=== PATIENT | female | born 1935 | race Caucasian/White ===

== ENCOUNTER 2021-02-05 10:09 | Emergency (ER) | payer MEDICARE, OTHER ==
[2021-02-05 10:37] LABS: BASOPHIL 0.4 % (0-2); EOSINOPHIL 0.2 % (0-7); HCT 39.8 % (37.0-47.0); HGB 13.2 g/dl (12.5-16.0); LYMPHOCYTE 9.9 % (15-48); MCH 31.2 pg (25.0-31.0); MCHC 33.2 g/dL (32.0-36.0); MCV 94.1 fL (78.0-100.0); MONOCYTE 17.1 % (0-12); NEUTROPHIL 72.2 % (41-80); NRBC 0; PLT 140 K/uL (150-400); RBC 4.23 M/uL (4.20-5.40); RDW 13.3 % (11.5-14.0); WBC 5.3 K/uL (4.0-10.5)
[2021-02-05 11:11] LABS: ALBUMIN 3.2 g/dL (3.4-5.0); BILIRUBIN - TOTAL 0.9 mg/dL (0.2-1.0); CREATININE 0.85 mg/dL (0.51-0.95); GLOBULIN (CALCULATION) 3.2 g/dL; POTASSIUM 3.8 mmol/L (3.5-5.1); TOTAL PROTEIN 6.4 g/dL (6.4-8.2)
== END 2021-02-05 12:11 | disposition home or self-care (01) ==
LOC: FER 10:09
PROVIDERS: Internal Medicine
DX: U07.1 COVID-19 (principal); I25.2 Old myocardial infarction; E78.5 Hyperlipidemia, unspecified; I10 Essential (primary) hypertension; M54.9 Dorsalgia, unspecified; Z53.29 Procedure and treatment not carried out because of patient's decision for other reasons; Z95.0 Presence of cardiac pacemaker
CPT/HCPCS: 36415; 71045; 80053; 84145; 85025; 93005; M0243

== ENCOUNTER 2021-02-08 08:15 | Inpatient (IN) | payer MEDICARE, OTHER ==
[~2021-02-08] VITALS: Ht 162.6 cm; Wt 69.1 kg
[2021-02-08 09:38] LABS: BASOPHIL 0.5 % (0-2); EOSINOPHIL 0 % (0-7); HCT 40.4 % (37.0-47.0); HGB 13.3 g/dl (12.5-16.0); LYMPHOCYTE 14.7 % (15-48); MCH 30.4 pg (25.0-31.0); MCHC 32.9 g/dL (32.0-36.0); MCV 92.4 fL (78.0-100.0); MONOCYTE 19.1 % (0-12); NEUTROPHIL 64.4 % (41-80); NRBC 0; PLT 152 K/uL (150-400); RBC 4.37 M/uL (4.20-5.40); RDW 12.9 % (11.5-14.0); WBC 3.9 K/uL (4.0-10.5)
[2021-02-08 10:07] LABS: ALBUMIN 2.8 g/dL (3.4-5.0); BILIRUBIN - TOTAL 0.6 mg/dL (0.2-1.0); BUN/CREAT RATIO (CALC) 31.2 RATIO; C-REACTIVE PROTEIN 6.5 mg/dL (<=0.90); CREATININE 0.64 mg/dL (0.51-0.95); POTASSIUM 3.3 mmol/L (3.5-5.1); TOTAL PROTEIN 6.8 g/dL (6.4-8.2)
[2021-02-08 10:10] LABS: INR 1.24 (0.9-1.2); PROTHROMBIN TIME 14.9 SECONDS (11.8-13.4); PTT 37.5 SECONDS (24.4-34.7)
[2021-02-08 10:21] LABS: IRON % SATURATION 7.8 %SAT (20-50)
[2021-02-08 10:49] LABS: LACTIC ACID 0.9 mmol/L (0.4-1.9)
[2021-02-10 06:39] LABS: BASOPHIL 0.1 % (0-2); EOSINOPHIL 0 % (0-7); HCT 37.1 % (37.0-47.0); HGB 12.7 g/dl (12.5-16.0); LYMPHOCYTE 8.6 % (15-48); MCHC 34.2 g/dL (32.0-36.0); MCV 90.5 fL (78.0-100.0); MONOCYTE 10.3 % (0-12); MPV 10.8 fL (6.0-9.5); NEUTROPHIL 79.1 % (41-80); NRBC 0; PLT 162 K/uL (150-400); RDW 12.8 % (11.5-14.0)
[2021-02-10 06:41] LABS: WBC 7.2 K/uL (4.0-10.5)
[2021-02-10 07:30] LABS: BUN/CREAT RATIO (CALC) 31.7 RATIO; CREATININE 0.63 mg/dL (0.51-0.95); POTASSIUM 3.3 mmol/L (3.5-5.1)
[2021-02-11 06:51] LABS: BASOPHIL 0.4 % (0-2); EOSINOPHIL 0 % (0-7); HCT 37.6 % (37.0-47.0); HGB 12.8 g/dl (12.5-16.0); LYMPHOCYTE 11.6 % (15-48); MPV 10.8 fL (6.0-9.5); NEUTROPHIL 71.1 % (41-80); NRBC 0; PLT 179 K/uL (150-400); RBC 4.13 M/uL (4.20-5.40)
[2021-02-11 06:52] LABS: WBC 6.8 K/uL (4.0-10.5)
[2021-02-11 07:28] LABS: ALBUMIN 2.2 g/dL (3.4-5.0); BILIRUBIN - TOTAL 0.3 mg/dL (0.2-1.0); BUN/CREAT RATIO (CALC) 30.8 RATIO; C-REACTIVE PROTEIN 1.5 mg/dL (<=0.90); CREATININE 0.65 mg/dL (0.51-0.95); GLOBULIN (CALCULATION) 3.2 g/dL; POTASSIUM 3.5 mmol/L (3.5-5.1); TOTAL PROTEIN 5.4 g/dL (6.4-8.2)
[2021-02-11] MEDS ORDERED: ALENDRONATE SOD70 MG PO (13:37)
[2021-02-11] MEDS ORDERED: DILTIAZEM ER360 MG PO (13:38)
[2021-02-11] MEDS ORDERED: LIPITOR40 MG PO (13:38)
[2021-02-11] MEDS ORDERED: NEURONTIN300 MG PO (13:39)
[2021-02-11] MEDS ORDERED: SYNTHROID125 MCG PO (13:39)
[2021-02-11] MEDS ORDERED: ELIQUIS5 MG PO (13:39)
[2021-02-11] MEDS ORDERED: PRINIVIL20 MG PO (13:40)
[2021-02-11] MEDS ORDERED: TOPROL XL 50 MG50 MG PO (13:40)
[2021-02-12 07:00] LABS: BASOPHIL 0.6 % (0-2); EOSINOPHIL 0 % (0-7); HCT 39.5 % (37.0-47.0); HGB 13.1 g/dl (12.5-16.0); LYMPHOCYTE 10.3 % (15-48); MCH 30.5 pg (25.0-31.0); MCHC 33.2 g/dL (32.0-36.0); MCV 92.1 fL (78.0-100.0); MONOCYTE 11.9 % (0-12); MPV 10.6 fL (6.0-9.5); NEUTROPHIL 71.4 % (41-80); NRBC 0; PLT 192 K/uL (150-400); RBC 4.29 M/uL (4.20-5.40); RDW 13.2 % (11.5-14.0); WBC 6.4 K/uL (4.0-10.5)
[2021-02-12 07:21] LABS: BUN/CREAT RATIO (CALC) 25.7 RATIO; CREATININE 0.74 mg/dL (0.51-0.95); POTASSIUM 3.7 mmol/L (3.5-5.1)
[2021-02-12] MEDS ORDERED: MEDROL 4MG DOSEP4 MG PO ×2 (11:24→16:01)
== END 2021-02-12 16:00 | disposition home health service (06) | DRG 177 ==
LOC: FER 08:15 → FTCU 11:46 → FMS 02-12 01:31
PROVIDERS: Emergency Medicine; Internal Medicine; Nurse Practitioner; ADMIT Internal Medicine
PROC: XW033E5 Introduction of Remdesivir Anti-infective into Peripheral Vein, Percutaneous Approach, New Technology Group 5 (ICD-10-PCS; principal; 2021-02-08)
PROC: 8E0ZXY6 Isolation (ICD-10-PCS; 2021-02-08)
DX: U07.1 COVID-19 (principal); J12.82 Pneumonia due to coronavirus disease 2019; J96.01 Acute respiratory failure with hypoxia; I21.A1 Myocardial infarction type 2; J18.9 Pneumonia, unspecified organism; M84.48XA Pathological fracture, other site, initial encounter for fracture; I10 Essential (primary) hypertension; Z66 Do not resuscitate; Z96.652 Presence of left artificial knee joint; E03.9 Hypothyroidism, unspecified; G62.9 Polyneuropathy, unspecified; G89.29 Other chronic pain; Z79.01 Long term (current) use of anticoagulants; Z79.890 Hormone replacement therapy; Z79.899 Other long term (current) drug therapy; Z90.710 Acquired absence of both cervix and uterus; Z90.89 Acquired absence of other organs; Z95.0 Presence of cardiac pacemaker; I25.2 Old myocardial infarction; Z86.73 Personal history of transient ischemic attack (TIA), and cerebral infarction without residual deficits; Z98.41 Cataract extraction status, right eye; Z98.42 Cataract extraction status, left eye
CPT/HCPCS: 36415; 36600; 71250; 80048; 80053; 82550; 82728; 82803; 83540; 83550; 83605; 83615; 83735; 83880; 84145; 84443; 84484; 85025; 85610; 85730; 86140; 87040; 93005; 94010; 94640; 94667; 94668; 97162; 97166; 97530-GP; 97535; C9399; J0456; J0696; J1100; J1650; J7050; J8540; U0002

== ENCOUNTER 2021-02-18 07:27 | Inpatient (IN) | payer MEDICARE, OTHER ==
[~2021-02-18] VITALS: Ht 162.6 cm; Wt 69.9 kg
[~2021-02-18 07:27] MED LIST: ALENDRONATE SOD70 MG PO; DILTIAZEM ER360 MG PO; ELIQUIS5 MG PO; LIPITOR40 MG PO; MEDROL 4MG DOSEP4 MG PO; NEURONTIN300 MG PO; PRINIVIL20 MG PO; SYNTHROID125 MCG PO; TOPROL XL 50 MG50 MG PO
[2021-02-18 08:16] LABS: BASOPHIL 0.2 % (0-2); EOSINOPHIL 0.3 % (0-7); HCT 42.5 % (37.0-47.0); MCHC 32.9 g/dL (32.0-36.0); MONOCYTE 5.8 % (0-12); MPV 10.4 fL (6.0-9.5); NEUTROPHIL 86.7 % (41-80); NRBC 0; PLT 257 K/uL (150-400); RBC 4.52 M/uL (4.20-5.40); RDW 13.6 % (11.5-14.0); WBC 12.5 K/uL (4.0-10.5)
[2021-02-18 08:50] LABS: ALBUMIN 2.5 g/dL (3.4-5.0); BILIRUBIN - TOTAL 0.7 mg/dL (0.2-1.0); C-REACTIVE PROTEIN 1.8 mg/dL (<=0.90); CREATININE 0.75 mg/dL (0.51-0.95); GLOBULIN (CALCULATION) 3.2 g/dL; MAGNESIUM 2.1 mg/dL (1.8-2.4); POTASSIUM 3.7 mmol/L (3.5-5.1); TOTAL PROTEIN 5.7 g/dL (6.4-8.2)
[2021-02-18 14:09] LABS: LACTIC ACID 1.5 mmol/L (0.4-1.9)
[2021-02-18 15:05] LABS: BILIRUBIN NEGATIVE (NEGATIVE); BLOOD NEGATIVE Ery/uL (NEGATIVE); CLARITY CLEAR (CLEAR); COLOR YELLOW (YELLOW); GLUCOSE (U) NORMAL (NORMAL); LEUKOCYTES NEGATIVE Leu/uL (NEGATIVE); NITRITE NEGATIVE (NEGATIVE); PROTEIN NEGATIVE (NEGATIVE); UROBILINOGEN 0.2 mg/dL (0.2-1.0); pH 7.5 (5.0-9.0)
[2021-02-18 18:10] LABS: MAGNESIUM 1.9 mg/dL (1.8-2.4)
[2021-02-19 05:56] LABS: BASOPHIL 0 % (0-2); EOSINOPHIL 0.7 % (0-7); HCT 39.5 % (37.0-47.0); HGB 13.5 g/dl (12.5-16.0); LYMPHOCYTE 8.2 % (15-48); MCHC 34.2 g/dL (32.0-36.0); MCV 90.8 fL (78.0-100.0); MONOCYTE 7.7 % (0-12); MPV 10.8 fL (6.0-9.5); NEUTROPHIL 82.5 % (41-80); NRBC 0; PLT 215 K/uL (150-400); RBC 4.35 M/uL (4.20-5.40); RDW 13.7 % (11.5-14.0); WBC 8.9 K/uL (4.0-10.5)
[2021-02-19 06:15] LABS: BILIRUBIN - TOTAL 0.9 mg/dL (0.2-1.0); BUN/CREAT RATIO (CALC) 24.2 RATIO; CREATININE 0.66 mg/dL (0.51-0.95); GLOBULIN (CALCULATION) 2.8 g/dL; MAGNESIUM 1.9 mg/dL (1.8-2.4); TOTAL PROTEIN 4.8 g/dL (6.4-8.2)
--- NOTE | 2021-02-19 16:35 | NUR ---
02/19 Ms. Rivas lives with her son and [id number]. She has home 02 at 2 L and a rw. [facility] is current and has been notified of admission. Please notify [facility] at [phone] if patient discharges over the weekend.
--- NOTE | 2021-02-19 16:36 | NUR ---
PER ANG CALLED JOHNNY AT [facility] TO ADVISE THAT ANTICIPATED D/C FOR PT. IS Monday02/20/21. FAXED H & P TO JOHNNY AT [phone].
[2021-02-20 05:55] LABS: BASOPHIL 0.2 % (0-2); EOSINOPHIL 1.2 % (0-7); HCT 41.6 % (37.0-47.0); HGB 13.8 g/dl (12.5-16.0); LYMPHOCYTE 11.4 % (15-48); MCH 31.4 pg (25.0-31.0); MCHC 33.2 g/dL (32.0-36.0); MCV 94.5 fL (78.0-100.0); MONOCYTE 13.4 % (0-12); NEUTROPHIL 72.6 % (41-80); NRBC 0; PLT 186 K/uL (150-400); RDW 13.9 % (11.5-14.0)
[2021-02-20 06:29] LABS: ALBUMIN 1.8 g/dL (3.4-5.0); BILIRUBIN - TOTAL 0.5 mg/dL (0.2-1.0); BUN/CREAT RATIO (CALC) 22.6 RATIO; CREATININE 0.62 mg/dL (0.51-0.95); MAGNESIUM 2.2 mg/dL (1.8-2.4); POTASSIUM 4.4 mmol/L (3.5-5.1); TOTAL PROTEIN 4.8 g/dL (6.4-8.2)
[2021-02-21 06:08] LABS: BASOPHIL 0.2 % (0-2); EOSINOPHIL 1.8 % (0-7); HCT 41.5 % (37.0-47.0); HGB 13.4 g/dl (12.5-16.0); LYMPHOCYTE 13.1 % (15-48); MCH 30.4 pg (25.0-31.0); MCHC 32.3 g/dL (32.0-36.0); MCV 94.1 fL (78.0-100.0); MONOCYTE 10.9 % (0-12); MPV 10.9 fL (6.0-9.5); NEUTROPHIL 73.4 % (41-80); NRBC 0; PLT 210 K/uL (150-400); RBC 4.41 M/uL (4.20-5.40); RDW 13.9 % (11.5-14.0); WBC 6.6 K/uL (4.0-10.5)
[2021-02-21 06:22] LABS: BILIRUBIN - TOTAL 0.7 mg/dL (0.2-1.0); BUN/CREAT RATIO (CALC) 15.6 RATIO; CREATININE 0.77 mg/dL (0.51-0.95); GLOBULIN (CALCULATION) 3.2 g/dL; MAGNESIUM 2.3 mg/dL (1.8-2.4); POTASSIUM 4.4 mmol/L (3.5-5.1); TOTAL PROTEIN 5.2 g/dL (6.4-8.2)
[2021-02-21] MEDS ORDERED: LOPRESSOR50 MG PO (12:43)
[2021-02-21] MEDS ORDERED: CARDIZEM CD120 MG PO (12:43)
[2021-02-21] MEDS ORDERED: DIGITEK125 MCG PO (12:43)
== END 2021-02-21 13:15 | disposition home or self-care (01) | DRG 308 ==
LOC: FER 07:27 → FMS 14:17 → FTCU 02-19 13:23
PROVIDERS: Emergency Medicine; ADMIT Family Medicine
PROC: 8E0ZXY6 Isolation (ICD-10-PCS; principal; 2021-02-18)
DX: I48.20 Chronic atrial fibrillation, unspecified (principal); U07.1 COVID-19; I50.33 Acute on chronic diastolic (congestive) heart failure; I13.0 Hypertensive heart and chronic kidney disease with heart failure and stage 1 through stage 4 chronic kidney disease, or unspecified chronic kidney disease; I95.1 Orthostatic hypotension; E86.0 Dehydration; E87.6 Hypokalemia; Z66 Do not resuscitate; N18.2 Chronic kidney disease, stage 2 (mild); I49.5 Sick sinus syndrome; E78.5 Hyperlipidemia, unspecified; I25.10 Atherosclerotic heart disease of native coronary artery without angina pectoris; E03.9 Hypothyroidism, unspecified; Z96.652 Presence of left artificial knee joint; Z90.89 Acquired absence of other organs; Z86.73 Personal history of transient ischemic attack (TIA), and cerebral infarction without residual deficits; Z90.710 Acquired absence of both cervix and uterus; I25.2 Old myocardial infarction; Z99.81 Dependence on supplemental oxygen; Z95.0 Presence of cardiac pacemaker
CPT/HCPCS: 36415; 70450; 80053; 81003; 82728; 83605; 83615; 83735; 83880; 84145; 84443; 84484; 85025; 86140; 93005; 94760; 94762; 97116; 97161; 97166; 97535; G0378; J1160; J3475; J7030; J7040; U0002

== ENCOUNTER 2021-10-17 13:34 | Emergency (ER) | payer MEDICARE, OTHER ==
[~2021-10-17 13:34] MED LIST changes: +CARDIZEM CD120 MG PO; +DIGITEK125 MCG PO; +LOPRESSOR50 MG PO
[2021-10-17] MEDS ORDERED: NORCO 5/3251 EACH PO (14:10)
== END 2021-10-17 15:20 | disposition home or self-care (01) ==
LOC: FER 13:34
DX: S52.501A Unspecified fracture of the lower end of right radius, initial encounter for closed fracture (principal); I10 Essential (primary) hypertension; Z88.5 Allergy status to narcotic agent; W18.30XA Fall on same level, unspecified, initial encounter; Y92.009 Unspecified place in unspecified non-institutional (private) residence as the place of occurrence of the external cause; Z28.310 Unvaccinated for COVID-19
CPT/HCPCS: 73110

== ENCOUNTER 2021-10-28 09:46 | Day surgery (SDCO) | payer MEDICARE, OTHER ==
[~2021-10-28] VITALS: Ht 162.6 cm; Wt 60.8 kg
[~2021-10-28 09:46] MED LIST changes: +NORCO 5/3251 EACH PO
[2021-10-28 10:43] LABS: BASOPHIL 0.5 % (0-2); EOSINOPHIL 1.8 % (0-7); HCT 41.2 % (37.0-47.0); HGB 13.7 g/dl (12.5-16.0); LYMPHOCYTE 13.5 % (15-48); MCH 30.5 pg (25.0-31.0); MCHC 33.3 g/dL (32.0-36.0); MCV 91.8 fL (78.0-100.0); MONOCYTE 10.2 % (0-12); MPV 10.2 fL (6.0-9.5); NEUTROPHIL 73.6 % (41-80); NRBC 0; PLT 219 K/uL (150-400); RBC 4.49 M/uL (4.20-5.40); RDW 13.1 % (11.5-14.0); WBC 8.2 K/uL (4.0-10.5)
[2021-10-28 11:01] LABS: INR 1.3 (0.9-1.2); PROTHROMBIN TIME 15.8 SECONDS (11.9-13.9); PTT 30.9 SECONDS (24.9-34.6)
[2021-10-28 11:16] LABS: BUN/CREAT RATIO (CALC) 19.8 RATIO; CREATININE 0.81 mg/dL (0.51-0.95); MAGNESIUM 2.2 mg/dL (1.8-2.4); POTASSIUM 3.5 mmol/L (3.5-5.1)
[2021-10-28 11:25] LABS: BILIRUBIN NEGATIVE (NEGATIVE); BLOOD NEGATIVE Ery/uL (NEGATIVE); CLARITY CLEAR (CLEAR); COLOR YELLOW (YELLOW); GLUCOSE (U) NORMAL (NORMAL); LEUKOCYTES NEGATIVE Leu/uL (NEGATIVE); NITRITE NEGATIVE (NEGATIVE); PROTEIN NEGATIVE (NEGATIVE); UROBILINOGEN 0.2 mg/dL (0.2-1.0)
[2021-10-28] MEDS ORDERED: DIGITEK125 MCG PO (15:04)
[2021-10-28] MEDS ORDERED: VITAMIN D325 MC4 PO (15:04)
[2021-10-28] MEDS ORDERED: SERTRALINE HCL25 MG PO (15:09)
[2021-10-28] MEDS ORDERED: ONDANSETRON HCL4 MG PO (15:11)
[2021-10-28] MEDS ORDERED: PRINIVIL20 MG PO (15:19)
[2021-10-29 06:54] LABS: BASOPHIL 0.4 % (0-2); EOSINOPHIL 3.6 % (0-7); HCT 37.7 % (37.0-47.0); HGB 12.5 g/dl (12.5-16.0); LYMPHOCYTE 18.8 % (15-48); MCH 30.3 pg (25.0-31.0); MCHC 33.2 g/dL (32.0-36.0); MCV 91.3 fL (78.0-100.0); MONOCYTE 11.7 % (0-12); MPV 10.7 fL (6.0-9.5); NEUTROPHIL 64.9 % (41-80); NRBC 0; PLT 205 K/uL (150-400); RBC 4.13 M/uL (4.20-5.40); RDW 13.2 % (11.5-14.0); WBC 7.2 K/uL (4.0-10.5)
[2021-10-29 07:15] LABS: BUN/CREAT RATIO (CALC) 23.9 RATIO; CREATININE 0.67 mg/dL (0.51-0.95); POTASSIUM 3.3 mmol/L (3.5-5.1)
--- NOTE | 2021-10-29 15:38 | NUR ---
10/29/21 Ms. Rivas lives with her son, Get Rivas, , and dtr-in-law. She has been followed by [facility] in the past and requested them again. A referral was made to [facility]. Please call [facility] at discharge, [phone]. - Ms. Rivas has a rollator, rw, cane, and s. seat.
--- NOTE | 2021-10-30 04:48 | NUR ---
PT IS CONCERNED ABOUT HER ELEVATED BP. I NOTIFIED [facility] OF THE CONCERN & REASSURED THE PATIENT THAT THE PHYSICIANS ARE AWARE.
== END 2021-10-30 14:40 | disposition home health service (06) ==
LOC: FER 09:46 → FTCU 13:52
PROVIDERS: Emergency Medicine; ADMIT Internal Medicine
DX: R55 Syncope and collapse (principal); I21.4 Non-ST elevation (NSTEMI) myocardial infarction; I10 Essential (primary) hypertension; I25.10 Atherosclerotic heart disease of native coronary artery without angina pectoris; I48.20 Chronic atrial fibrillation, unspecified; E03.9 Hypothyroidism, unspecified; Z20.822 Contact with and (suspected) exposure to COVID-19; Z86.73 Personal history of transient ischemic attack (TIA), and cerebral infarction without residual deficits; Z95.0 Presence of cardiac pacemaker; Z87.891 Personal history of nicotine dependence; Z79.01 Long term (current) use of anticoagulants; Z79.899 Other long term (current) drug therapy; Z88.5 Allergy status to narcotic agent
CPT/HCPCS: 36415; 70450; 71045; 80048; 80162; 81003; 83605; 83735; 83880; 84145; 84443; 84484; 85025; 85610; 85730; 87088; 93005; G0378; J7030; U0002